=== PATIENT | female | born 1985 | race Caucasian/White ===

== ENCOUNTER 2018-05-23 19:06 | Observation (INO) | payer OTHER ==
[2018-05-23 20:33] LABS: Basophils % (A) 0 %; Eosinophils # (A) 0.1 k/uL (0-0.7); Eosinophils % (A) 1 %; HCT 40.8 % (34.0-46.0); HGB 13.8 gm/dL (11.4-16.0); Lymphocytes # (A) 2.3 k/uL (1.0-4.8); Lymphocytes % (A) 23 %; MCHC 33.7 g/dL (31.0-37.0); MCV 86.1 fL (80.0-100.0); Mean Platelet Volume 9.3; Monocytes # (A) 0.5 k/uL (0-1.0); Monocytes % (A) 5 %; Neutrophils # (A) 6.8 k/uL (1.3-7.7); Neutrophils % (A) 68 %; Platelet Count 171 k/uL (150-450); RBC 4.74 m/uL (3.80-5.40); RDW 12.7 % (11.5-15.5)
[2018-05-23 20:45] LABS: ALT 24 U/L (9-52); AST 18 U/L (14-36); Albumin 4.3 g/dL (3.5-5.0); Alkaline Phosphatase 39 U/L (38-126); Anion Gap 9 mmol/L; Blood Urea Nitrogen 12 mg/dL (7-17); Calcium 9.8 mg/dL (8.4-10.2); Carbon Dioxide 26 mmol/L (22-30); Chloride 103 mmol/L (98-107); Glucose 88 mg/dL (74-99); Potassium 4.8 mmol/L (3.5-5.1); Sodium 138 mmol/L (137-145); Total Bilirubin 0.2 mg/dL (0.2-1.3); Total Protein 6.7 g/dL (6.3-8.2)
[2018-05-23] MEDS ORDERED: ACETAMINOPHEN TAB 500 MG TAB PO STA (20:52)
[2018-05-23] MEDS ORDERED: SODIUM CHLORIDE 0.9% 1,000 ML IV STA (21:03)
--- NOTE | 2018-05-23 21:03 | ED ---
General Adult HPI - General Chief complaint: Vaginal Bleeding Stated complaint: 7wks preg, bleeding Time Seen by Provider: 05/23/18 20:25 Source: patient, RN notes reviewed Mode of arrival: wheelchair Limitations: no limitations - History of Present Illness Initial comments: 32-year-old female presents to the emergency department for a chief complaint of vaginal bleeding 2 hours. Patient states she is 7.5 weeks . Patient states she was walking in the parking lot when she felt a gush of blood. Patient also admits to lower abdominal cramping pain. Patient states she has received Rhogam shots in the past. Patient states she has been nauseous throughout her . Patient denies any vaginal discharge or concern for STDs. Patient has no other complaints at this time including shortness of breath, chest pain, abdominal pain, nausea or vomiting, headache, or visual changes. - Related Data Home Medications Medication Instructions Recorded Confirmed No Known Home Medications 05/23/18 05/23/18 Allergies Allergy/AdvReac Type Severity Reaction Status Date / Time No Known Allergies Allergy Verified 05/23/18 22:53 Review of Systems ROS Statement: Those systems with pertinent positive or pertinent negative responses have been documented in the HPI. ROS Other: All systems not noted in ROS Statement are negative. Past Medical History Past Medical History: No Reported History History of Any Multi-Drug Resistant Organisms: None Reported Past Surgical History: No Surgical Hx Reported Past Psychological History: No Psychological Hx Reported Smoking Status: Never smoker Past Alcohol Use History: Occasional Past Drug Use History: None Reported - Past Family History Father Family Medical History: No Reported History General Exam Limitations: no limitations General appearance: alert, in no apparent distress (Patient is sitting up in bed communicating and pleasant. No distress.) Head exam: Present: atraumatic, normocephalic, normal inspection Eye exam: Present: normal appearance, PERRL, EOMI. Absent: scleral icterus, conjunctival injection, periorbital swelling ENT exam: Present: normal exam, mucous membranes moist Neck exam: Present: normal inspection, full ROM. Absent: tenderness, meningismus, lymphadenopathy Respiratory exam: Present: normal lung sounds bilaterally. Absent: respiratory distress, wheezes, rales, rhonchi, stridor Cardiovascular Exam: Present: regular rate, normal rhythm, normal heart sounds. Absent: systolic murmur, diastolic murmur, rubs, gallop, clicks GI/Abdominal exam: Present: soft, tenderness (Mild lower abdominal tenderness bilaterally), normal bowel sounds. Absent: distended, guarding, rebound, rigid External exam: Present: normal external exam Speculum exam: Present: vaginal bleeding (Significant vaginal bleeding noted, patient is passing clots. Cervical os cannot be visualized). Absent: normal speculum exam, vaginal discharge, foreign body By manual exam: Present: normal by manual exam. Absent: cervical motion tenderness, adnexal tenderness, adnexal mass, uterine enlargement, uterine tenderness Neurological exam: Present: alert, oriented X3, CN II-XII intact Psychiatric exam: Present: normal affect, normal mood Course Vital Signs 05/23/18 05/23/18 05/23/18 19:14 22:04 23:25 Temperature 98.2 F Pulse Rate 76 80 86 Respiratory 16 18 18 Rate Blood Pressure 122/85 111/62 102/62 O2 Sat by Pulse 99 99 98 Oximetry 05/24/18 00:00 Temperature 97.9 F Pulse Rate 80 Respiratory 18 Rate Blood Pressure 106/62 O2 Sat by Pulse 99 Oximetry Medical Decision Making - Medical Decision Making 32-year-old female presents to the emergency department for chief complaint of vaginal bleeding 2 hours. Patient states she is 7 weeks . Patient states she began to "gush blood" while walking across the parking lot. Patient is also having lower abdominal cramping. Patient does have a history of 1 miscarriage occurring last year. Patient has 2 other healthy pregnancies. Patient is visiting from the [facility]. On exam patient has some mild lower abdominal tenderness. On speculum exam patient is experiencing a significant amount of vaginal bleeding as well as passing clots.CBC shows a hemoglobin of 13.8. CMP unremarkable. HCG Quant 95,006. ultrasound shows a viable intrauterine 7 weeks with a heart rate of 157. Patient is experiencing a threatened at this time. I discussed the case with Dr. Guzman who offered admission to monitor serial CBCs. Discussed with patient and she agrees with this. Patient will be admitted for observation. I did discuss with administrative charge placement of the patient who recommended Labor and delivery. Patient will be kept nothing by mouth for now. Pain currently managed with Tylenol. - Lab Data Result diagrams: 05/23/18 20:00 05/23/18 20:00 Lab Results 05/23/18 05/23/18 05/23/18 Range/Units 20:00 20:00 20:00 WBC 10.0 (3.8-10.6) k/uL RBC 4.74 (3.80-5.40) m/uL Hgb 13.8 (11.4-16.0) gm/dL Hct 40.8 (34.0-46.0) % MCV 86.1 (80.0-100.0) fL MCH 29.0 (25.0-35.0) pg MCHC 33.7 (31.0-37.0) g/dL RDW 12.7 (11.5-15.5) % Plt Count 171 (150-450) k/uL Neutrophils % 68 % Lymphocytes % 23 % Monocytes % 5 % Eosinophils % 1 % Basophils % 0 % Neutrophils # 6.8 (1.3-7.7) k/uL Lymphocytes # 2.3 (1.0-4.8) k/uL Monocytes # 0.5 (0-1.0) k/uL Eosinophils # 0.1 (0-0.7) k/uL Basophils # 0.0 (0-0.2) k/uL Sodium 138 (137-145) mmol/L Potassium 4.8 (3.5-5.1) mmol/L Chloride 103 (98-107) mmol/L Carbon Dioxide 26 (22-30) mmol/L Anion Gap 9 mmol/L BUN 12 (7-17) mg/dL Creatinine 0.61 (0.52-1.04) mg/dL Est GFR (CKD-EPI)AfAm >90 (>60 ml/min/1.73 sqM) Est GFR (CKD-EPI)NonAf >90 (>60 ml/min/1.73 sqM) Glucose 88 (74-99) mg/dL Calcium 9.8 (8.4-10.2) mg/dL Total Bilirubin 0.2 (0.2-1.3) mg/dL AST 18 (14-36) U/L ALT 24 (9-52) U/L Alkaline Phosphatase 39 (38-126) U/L Total Protein 6.7 (6.3-8.2) g/dL Albumin 4.3 (3.5-5.0) g/dL Amylase (30-110) U/L Lipase (23-300) U/L HCG, Quant mIU/mL Urine Color Urine Appearance (Clear) Urine RBC (0-5) /hpf Urine HCG, Qual (Not Detectd) Blood Type O Negative Blood Type Confirm Blood Type Recheck CABO Indicated Antibody Screen 05/23/18 05/23/18 05/23/18 Range/Units 20:00 20:00 22:02 WBC (3.8-10.6) k/uL RBC (3.80-5.40) m/uL Hgb (11.4-16.0) gm/dL Hct (34.0-46.0) % MCV (80.0-100.0) fL MCH (25.0-35.0) pg MCHC (31.0-37.0) g/dL RDW (11.5-15.5) % Plt Count (150-450) k/uL Neutrophils % % Lymphocytes % % Monocytes % % Eosinophils % % Basophils % % Neutrophils # (1.3-7.7) k/uL Lymphocytes # (1.0-4.8) k/uL Monocytes # (0-1.0) k/uL Eosinophils # (0-0.7) k/uL Basophils # (0-0.2) k/uL Sodium (137-145) mmol/L Potassium (3.5-5.1) mmol/L Chloride (98-107) mmol/L Carbon Dioxide (22-30) mmol/L Anion Gap mmol/L BUN (7-17) mg/dL Creatinine (0.52-1.04) mg/dL Est GFR (CKD-EPI)AfAm (>60 ml/min/1.73 sqM) Est GFR (CKD-EPI)NonAf (>60 ml/min/1.73 sqM) Glucose (74-99) mg/dL Calcium (8.4-10.2) mg/dL Total Bilirubin (0.2-1.3) mg/dL AST (14-36) U/L ALT (9-52) U/L Alkaline Phosphatase (38-126) U/L Total Protein (6.3-8.2) g/dL Albumin (3.5-5.0) g/dL Amylase 57 (30-110) U/L Lipase 92 (23-300) U/L HCG, Quant 37717.0 mIU/mL Urine Color Urine Appearance (Clear) Urine RBC (0-5) /hpf Urine HCG, Qual Detected (Not Detectd) Blood Type Blood Type Confirm Blood Type Recheck Antibody Screen NEGATIVE 05/23/18 05/23/18 Range/Units 22:02 22:45 WBC (3.8-10.6) k/uL RBC (3.80-5.40) m/uL Hgb (11.4-16.0) gm/dL Hct (34.0-46.0) % MCV (80.0-100.0) fL MCH (25.0-35.0) pg MCHC (31.0-37.0) g/dL RDW (11.5-15.5) % Plt Count (150-450) k/uL Neutrophils % % Lymphocytes % % Monocytes % % Eosinophils % % Basophils % % Neutrophils # (1.3-7.7) k/uL Lymphocytes # (1.0-4.8) k/uL Monocytes # (0-1.0) k/uL Eosinophils # (0-0.7) k/uL Basophils # (0-0.2) k/uL Sodium (137-145) mmol/L Potassium (3.5-5.1) mmol/L Chloride (98-107) mmol/L Carbon Dioxide (22-30) mmol/L Anion Gap mmol/L BUN (7-17) mg/dL Creatinine (0.52-1.04) mg/dL Est GFR (CKD-EPI)AfAm (>60 ml/min/1.73 sqM) Est GFR (CKD-EPI)NonAf (>60 ml/min/1.73 sqM) Glucose (74-99) mg/dL Calcium (8.4-10.2) mg/dL Total Bilirubin (0.2-1.3) mg/dL AST (14-36) U/L ALT (9-52) U/L Alkaline Phosphatase (38-126) U/L Total Protein (6.3-8.2) g/dL Albumin (3.5-5.0) g/dL Amylase (30-110) U/L Lipase (23-300) U/L HCG, Quant mIU/mL Urine Color Dark Red Urine Appearance Bloody H (Clear) Urine RBC >182 H (0-5) /hpf Urine HCG, Qual (Not Detectd) Blood Type Blood Type Confirm O Negative Blood Type Recheck Antibody Screen Disposition Clinical Impression: Threatened , Vaginal bleeding Disposition: ADMITTED IP TO THIS HOSP Condition: Good Is patient prescribed a controlled substance at d/c from ED?: No Time of Disposition: 00:39
--- NOTE | 2018-05-23 22:07 | US ---
EXAMINATION TYPE: Transabdominal DATE OF EXAM: 01/17/18 COMPARISON: NONE CLINICAL HISTORY: Pain. Bleeding x 2 hours EXAM PERFORMED: Transabdominal (TA) EXAM MEASUREMENTS: GESTATIONAL AGE / DATING Physician Established: (7 weeks/3 days) EDC: 01/06/2019 Dates by LMP: (7 weeks/3 days) EDC: 01/06/2019 Dates by First Scan: No previous this is first scan Dates by Current Scan for: (7 weeks/2 days) EDC: 01/07/2019 MATERNAL ANATOMY Uterus: 11.1 x 5.8 x 8.8 cm Left Ovary: 3.3 x 2.4 x 2.8 cm Post CDS / Adnexa: wnl Presence of free fluid: no Presence of corpus luteal cyst: yes left Presence of subchorionic bleed: Suggestive of. GESTATION / SURVEY CRL: 1.1 cm (7 weeks/2 days) Yolk Sac (normal less than 6mm): 3mm Heart Rate: 157 bpm Rhythm: Normal IUP: Viable IUP Beta HcG (if available): Not available at this time IMPRESSION: Viable IUP 7w2d BENITO 01/07/2019 HR 157 BPM
[2018-05-23 22:14] LABS: Color,Urine Dark Red; RBC,Urine >182 /hpf (0-5)
[2018-05-23 22:15] LABS: Appearance,Urine Bloody (Clear)
[2018-05-24] MEDS ORDERED: Rhogam IMMUNE GLOBULIN 1,500 UNIT/1 ML IM ONE (00:14)
[2018-05-24] MEDS ORDERED: NALOXONE 0.4 MG/ML 1 ML VIAL IV PRN (00:33)
[2018-05-24] MEDS ORDERED: ACETAMINOPHEN IV (For NPO) 1,000 MG in EMPTY BAG 1 BAG IVPB PRN (00:38)
[2018-05-24] MEDS ORDERED: SODIUM CHLORIDE 0.9% 1,000 ML IV SCH (00:45)
[2018-05-24 02:19] VITALS: BMI 26.6
[2018-05-24 07:05] LABS: Basophils % (A) 1 %; Eosinophils # (A) 0.1 k/uL (0-0.7); Eosinophils % (A) 1 %; HCT 33.5 % (34.0-46.0); HGB 11.1 gm/dL (11.4-16.0); Lymphocytes # (A) 1.7 k/uL (1.0-4.8); Lymphocytes % (A) 25 %; MCH 28.8 pg (25.0-35.0); MCHC 33.2 g/dL (31.0-37.0); MCV 86.8 fL (80.0-100.0); Mean Platelet Volume 9.4; Monocytes # (A) 0.4 k/uL (0-1.0); Monocytes % (A) 6 %; Neutrophils # (A) 4.5 k/uL (1.3-7.7); Neutrophils % (A) 66 %; Platelet Count 143 k/uL (150-450); RBC 3.86 m/uL (3.80-5.40); RDW 12.8 % (11.5-15.5); WBC 6.9 k/uL (3.8-10.6)
--- NOTE | 2018-05-24 07:43 | P.HPOB ---
History of Present Illness H&P Date: 05/24/18 Chief Complaint: Vaginal bleeding This is a 32-year-old female 4 para 2011 at approximately 7 weeks 3 days by last menstrual period who presented to the emergency room last night complaining of a large gush of blood with clots. In addition she had some lower abdominal cramping. She denies passing any tissue. In the emergency room , an ultrasound was performed which confirmed a viable fetus consistent with last menstrual period. There was what appeared to be a subchorionic bleed. Since she was actively bleeding, the decision was made to admit for observation. She also has O- blood type and did receive RhoGAM in the emergency room. This morning her bleeding has slowed to approximately 1 pad every 3 hours. No large clots are seen. Cramping is easing off a little bit. She lives in [place] and just called her OB yesterday to make an appointment. They're currently visiting relatives in [facility]. She is supposed to go back home today. She does state that if she is miscarrying, she would prefer no dilation and curettage at this time. Obstetrical history: . History of 2 vaginal deliveries at term and 1 miscarriage last year. She did not have a D&C at that time. Gynecologic history: No history of sexual transmitted diseases. Review of Systems Constitutional: Denies chills, Denies fever Eyes: denies blurred vision, denies pain Ears, nose, mouth and throat: Denies headache, Denies sore throat Cardiovascular: Denies chest pain, Denies shortness of breath Respiratory: Denies cough Gastrointestinal: Reports abdominal pain Genitourinary: Reports abnormal vaginal bleeding, Reports pelvic pain, Reports Integumentary: Denies pruritus, Denies rash Neurological: Denies numbness, Denies weakness Psychiatric: Denies anxiety, Denies depression Past Medical History Past Medical History: No Reported History History of Any Multi-Drug Resistant Organisms: None Reported Additional Past Surgical History / Comment(s): cyst removed from wrist January 2018 Past Anesthesia/Blood Transfusion Reactions: No Reported Reaction Past Psychological History: No Psychological Hx Reported Smoking Status: Never smoker Past Alcohol Use History: Occasional Past Drug Use History: None Reported - Past Family History Father Family Medical History: No Reported History Medications and Allergies Home Medications Medication Instructions Recorded Confirmed Type No Known Home Medications 05/23/18 05/23/18 History Allergies Allergy/AdvReac Type Severity Reaction Status Date / Time No Known Allergies Allergy Verified 05/23/18 22:53 Exam Osteopathic Statement: *. No significant issues noted on an osteopathic structural exam other than those noted in the History and Physical/Consult. Vital Signs Temp Pulse Pulse Resp BP BP Pulse Ox 05/24/18 04:00 98.6 F 80 16 98/55 05/24/18 01:20 97.7 F 86 16 116/72 05/24/18 00:00 97.9 F 80 18 106/62 99 05/23/18 23:25 86 18 102/62 98 05/23/18 22:04 80 18 111/62 99 05/23/18 19:14 98.2 F 76 16 122/85 99 Intake and Output 05/23/18 05/24/18 05/24/18 22:59 06:59 14:59 Intake Total 1800 Balance 1800 Intake: IV 600 Sodium Chloride 0.9% 1, 600 000 ml @ 120 mls/hr IV . Q8H20M [facility] Rx#:[id number] Amount of Fluid Infused ( 1200 ml) Other: Weight 72.575 kg 72.575 kg Gen.: Well-developed well-nourished female in no acute distress HEENT: Within normal limits Heart: Regular rate and rhythm Lungs: Clear to auscultation bilaterally Abdomen: Soft, minimal tenderness in the suprapubic area. Pelvic exam: Uterus is anteverted and slightly enlarged to approximate 7-8 weeks ' size. No adnexal masses are palpated but there is some mild tenderness in the left adnexal region. Dark red blood is noted on the glove and the pad but no clots are noted. Extremities: Negative Homans Results Result Diagrams: 05/24/18 06:33 05/23/18 20:00 Abnormal Lab Results - Last 24 Hours (Table) 05/23/18 05/24/18 Range/Units 22:02 06:33 Hgb 11.1 L (11.4-16.0) gm/dL Hct 33.5 L (34.0-46.0) % Plt Count 143 L (150-450) k/uL Urine Appearance Bloody H (Clear) Urine RBC >182 H (0-5) /hpf Assessment and Plan (1) Threatened Current Visit: Yes Status: Acute Code(s): O20.0 - THREATENED SNOMED Code(s): 25359572 (2) Vaginal bleeding Current Visit: Yes Status: Acute Code(s): N93.9 - ABNORMAL UTERINE AND VAGINAL BLEEDING, UNSPECIFIED SNOMED Code(s): 062864399 Plan: Will obtain repeat ultrasound this morning to confirm that the fetus is still viable. Patient may eat and if she feels well enough after breakfast, may be discharged to go home. I have recommended that she follow-up with her home builder is sooner she gets home.
[2018-05-24 07:58] VITALS: BP 102/59; PULSE 79; RESP 18; TEMP 97.8
--- NOTE | 2018-05-24 08:50 | US ---
EXAMINATION TYPE: Transabdominal DATE OF EXAM: 01/17/18 COMPARISON: US dated 05/23/2018 CLINICAL HISTORY: Vaginal bleeding, confirm viability, 7-8 weeks. EXAM PERFORMED: Transabdominal (TA) EXAM MEASUREMENTS: GESTATIONAL AGE / DATING Physician Established: (7 weeks/4 days) EDC: 01/06/19 Dates by LMP: (7 weeks/ 4 days) EDC: 01/06/19 Dates by First Scan: (7 weeks/2 days) EDC: 01/07/19 Dates by Current Scan for: (7 weeks/1 days) EDC: 01/09/19 MATERNAL ANATOMY Uterus: 11.5 x 6.2 x 8.8cm Right Ovary: 2.4 x 1.6 x 1.5cm Left Ovary: 2.1 x 1.8 x 1.9cm Post CDS / Adnexa: wnl Presence of free fluid: no Presence of corpus luteal cyst: 1.4 x 1.5 x 1.3cm Presence of subchorionic bleed measuring 5.0 x 2.4 x 3.8cm GESTATION / SURVEY CRL: 1.0cm (7 weeks/1 days) Yolk Sac (normal less than 6mm): 3mm Heart Rate: 154 bpm Rhythm: Normal IUP: Viable IUP Beta HcG (if available): Not available at this time Large complex fluid collection seen within uterus, ?subchorionic bleed, measurements above. IMPRESSION: Mixed low echo area is present which may be within the subchorionic location as described suggests in terval subchorionic hemorrhage. heart rate 154 bpm.
[2018-05-24 11:21] LABS: Basophils % (A) 1 %; Eosinophils # (A) 0.1 k/uL (0-0.7); Eosinophils % (A) 1 %; HCT 34.6 % (34.0-46.0); HGB 11.6 gm/dL (11.4-16.0); Lymphocytes # (A) 1.4 k/uL (1.0-4.8); Lymphocytes % (A) 21 %; MCH 29.2 pg (25.0-35.0); MCHC 33.6 g/dL (31.0-37.0); MCV 86.7 fL (80.0-100.0); Mean Platelet Volume 8.9; Monocytes # (A) 0.3 k/uL (0-1.0); Monocytes % (A) 5 %; Neutrophils # (A) 4.7 k/uL (1.3-7.7); Neutrophils % (A) 71 %; Platelet Count 143 k/uL (150-450); RBC 3.99 m/uL (3.80-5.40); RDW 12.6 % (11.5-15.5); WBC 6.6 k/uL (3.8-10.6)
--- NOTE | 2018-05-24 12:16 | P.DS ---
Providers Date of admission: 05/24/18 00:46 Expected date of discharge: 05/24/18 Attending physician: Martha Guzman Primary care physician: Stated None - Discharge Diagnosis(es) (1) Threatened Current Visit: Yes Status: Acute (2) Vaginal bleeding Current Visit: Yes Status: Acute Hospital Course: This is a 32 yo. female, 4, para 2, who presented to ER with heavy vaginal bleeding. US showed viable IUP at 7-3/7 weeks. She was admitted for observation and repeat CBC. Her bleeding has slowed now and her hemoglobin did drop from 13 to 11.1, but no orthostatic hypotension. Repeat US this am still showed viable IUP with large subchorionic bleed. She will be discharged home today and is instructed to F/U with her OB in [place]. Advised pelvic rest. Patient Condition at Discharge: Good Plan - Discharge Summary New Discharge Prescriptions: No Action No Known Home Medications Discharge Medication List No Known Home Medications 05/23/18 [History] Follow up Appointment(s)/Referral(s): None,Stated [Primary Care Provider] - 1-2 days Activity/Diet/Wound Care/Special Instructions: Pelvic rest. Discharge Disposition: HOME SELF-CARE
== END 2018-05-24 15:00 | disposition home or self-care (01) ==
LOC: EC 19:06 → 4FBP 05-24 00:46
PROVIDERS: ADMIT Obstetrics & Gynecology; ATTEND Obstetrics & Gynecology
DX: O20.0 Threatened abortion (principal); Z3A.01 Less than 8 weeks gestation of pregnancy; Z87.59 Personal history of other complications of pregnancy, childbirth and the puerperium
CPT/HCPCS: 99285 ×2; 96360 ×2; 96361 ×2; 96372; 36415; 86900; 86901; 80053; 82150; 83690; 85025 ×2; 86850; 81001; 81025; 84702; 76801 ×2; G0378; J2791